=== PATIENT | female | born 1995 | race Caucasian/White ===

== ENCOUNTER 2016-07-17 14:33 | Emergency (ER) | payer BC ==
[~2016-07-17 14:33] MED LIST: NATALVIT1 TAB PO; PCET PO; PR25 PO
== END 2016-07-17 15:55 | disposition home or self-care (01) ==
LOC: ER 14:33
DX: L25.9 Unspecified contact dermatitis, unspecified cause (principal); H66.91 Otitis media, unspecified, right ear; F17.200 Nicotine dependence, unspecified, uncomplicated; Z79.899 Other long term (current) drug therapy
CPT/HCPCS: 84703; 99283